=== PATIENT | female | born 1945 | race Caucasian/White ===

== ENCOUNTER 2017-12-15 15:32 | Observation (INO) | payer MEDICARE, OTHER ==
[~2017-12-15] VITALS: Ht 162.6 cm; Wt 68.1 kg
[~2017-12-15 15:32] MED LIST: ASPIR 8181 MG PO; ATORVASTATIN CA20 MG PO; CARVEDILOL25 MG PO; GLIMEPIRIDE1 MG PO; GLIPIZIDE5 MG PO; KEFLEX500 MG PO; LISINOPRIL10 MG PO; METFORMIN HCL500 MG PO; METOPROLOL SUCC50 MG PO
[2017-12-15] MEDS ORDERED: ASPIRIN 81 MG CHEW TAB PO ONE ×2 (17:00→17:15)
[2017-12-15 19:12] LABS: BASOPHILS # (AUTO) 0.1 (0.0-0.1); BASOPHILS % 1.2 % (0.0-1.0); EOSINOPHILS # (AUTO) 0.5 (0.0-0.4); EOSINOPHILS % 6.3 % (0.0-6.0); HEMATOCRIT 34.5 % (34.2-44.1); HEMOGLOBIN 11.7 g/dL (12.0-16.0); LYMPHOCYTES # (AUTO) 2.4 (1.0-3.2); MEAN CORPUSCULAR HEMOGLOBIN 30.9 pg (28-32); MEAN CORPUSCULAR HGB CONC 33.9 g/dL (31-35); MONOCYTES # (AUTO) 0.7 (0.2-0.8); MONOCYTES % 8.9 % (4.4-11.3); NEUTROPHILS # (AUTO) 4.5 (2.1-6.9); NEUTROPHILS % 54.4 % (38.7-80.0); PLATELET COUNT 221 x10e3/uL (140-360); RED BLOOD COUNT 3.79 x10e6/uL (3.6-5.1); RED CELL DISTRIBUTION WIDTH 13.1 % (11.7-14.4)
[2017-12-15 19:33] LABS: ALBUMIN 3.8 g/dL (3.5-5.0); ALBUMIN/GLOBULIN RATIO 1.1 (0.8-2.0); ANION GAP 15.6 mmol/L (8-16); CALCIUM 10.4 mg/dL (8.4-10.2); CREATININE, SERUM 1.57 mg/dL (0.57-1.11); POTASSIUM 3.6 mmol/L (3.5-5.1)
[2017-12-15 19:39] LABS: CREATINE KINASE MB 3.2 ng/mL (0-5.0)
[2017-12-15 20:00] VITALS: BP 174/88
[2017-12-16] VITALS (8 sets, daily range): BP systolic 137–174; BP diastolic 70–79
[2017-12-16 03:07] LABS: CREATINE KINASE MB 2.3 ng/mL (0-5.0)
[2017-12-16] MEDS ORDERED: SERTRALINE HCL25 MG (05:22)
[2017-12-16] MEDS ORDERED: DONEPEZIL HCL5 MG (05:22)
[2017-12-16] MEDS ORDERED: DEXTROSE 50% SYRINGE 50 ML IV PRN (08:15)
[2017-12-16] MEDS: INSULIN REGULAR, HUMAN 100 UNIT/1 ML 3ML VIAL SQ SCH ×3 (08:35→20:41)
[2017-12-16 10:25] LABS: CREATINE KINASE MB 1.9 ng/mL (0-5.0)
[2017-12-16] MEDS ORDERED: POTASSIUM CHLORIDE 20MEQ/100ML 200 ML IV ONE (13:30)
[2017-12-16] MEDS ORDERED: METOPROLOL SUCCINATE 50 MG TAB XL PO ONE (13:45)
[2017-12-16] MEDS ORDERED: POTASSIUM CHLORIDE 10MEQ EA PO ONE (13:45)
--- NOTE | 2017-12-16 14:34 | History and Physical ---
REASON FOR ADMISSION: ICD shock. HISTORY OF PRESENT ILLNESS: This is a 72-year-old woman with a history of coronary artery disease status post 4-vessel CABG, chronic systolic heart failure status post AICD, diabetes mellitus, hypertension and hyperlipidemia, who presents after she was shocked by her AICD. The patient reports she had been feeling well without symptoms when she got up from her chair to walk to let her dog out into the yard. While she was standing at the door, she felt a shock down the left side of her chest. There were no preceding symptoms. The patient denied any chest pain, lightheadedness, shortness of breath, palpitations or loss of consciousness. She subsequently returned to her chair again and called her son, who brought her to the ER for further evaluation. On AICD interrogation, patient was found to have 1 shock delivered for a ventricular rate at 191 on yesterday afternoon at approximately 2:23. REVIEW OF SYSTEMS: Negative except as per HPI. PAST MEDICAL HISTORY 1. Coronary artery disease status post 4-vessel CABG. 2. Chronic systolic heart failure status post AICD. 3. Diabetes mellitus. 4. Hypertension. 5. Hyperlipidemia. PAST SURGICAL HISTORY 1. Cholecystectomy. 2. Hysterectomy. 3. Appendectomy. 4. CABG. 5. Hernia repair. ALLERGIES: NO KNOWN DRUG ALLERGIES. MEDICATIONS: Please see medication list. SOCIAL HISTORY: Denies tobacco, alcohol or illicit drugs. FAMILY HISTORY: Noncontributory to current illness. PHYSICAL EXAMINATION VITAL SIGNS: Temperature 96.7 degrees, pulse 80, respiratory rate 16, blood pressure 160/70, oxygen saturation 98% on room air. GENERAL: Elderly woman in no acute distress. Anxious-appearing. HEENT: Normocephalic, atraumatic. Pupils equal, no scleral icterus. NECK: Supple. No thyromegaly or cervical lymphadenopathy, no carotid bruits. LUNGS: Clear to auscultation bilaterally. No wheezes or crackles. CARDIOVASCULAR: Normal rate, regular rhythm. A 2/6 systolic murmur at the left sternal border. Normal S1 and S2. ABDOMEN: Soft, nontender. EXTREMITIES: No edema. LABS: WBC 8.27, hemoglobin 11.7, hematocrit 34.5, platelets 221. Sodium 138, potassium 3.6, chloride 103, CO2 23, BUN 18, creatinine 1.57. Troponin 0.055. Triglycerides 204, chloride 195, LDL 115, HDL 39. ELECTROCARDIOGRAM: Sinus tachycardia, otherwise normal ECG. TELEMETRY: Sinus tachycardia. IMPRESSION 1. Automatic implantable cardioverter-defibrillator shock. 2. Coronary artery disease status post 4-vessel coronary artery bypass graft. 3. Chronically systolic heart failure status post automatic implantable cardioverter-defibrillator. 4. Diabetes mellitus. 5. Hypertension. 6. Hyperlipidemia. RECOMMENDATIONS: There has been no evidence of myocardial infarction on serial cardiac biomarkers. Replete electrolytes. We will increase atorvastatin given LDL is not at goal. Patient had ischemic evaluation 1 year prior with patent grafts at that time. In addition, patient appears to have received an inappropriate shock for a supraventricular tachycardia based on the appearance of her rhythm strip on device interrogation. Plan for outpatient monitor to evaluate for any atrial arrhythmias that could have explained her tachycardia. Resume patient's home beta blockade as well as her home medications. Monitor patient on telemetry while she is admitted. Once electrolytes are repleted, likely discharge home later this afternoon. Job#: [id number] EV LOR
[2017-12-16 15:05] LABS: ANION GAP 12.6 mmol/L (8-16); CALCIUM 9.3 mg/dL (8.4-10.2); CREATININE, SERUM 1.58 mg/dL (0.57-1.11); MAGNESIUM 1.5 MG/DL (1.3-2.1); POTASSIUM 4.6 mmol/L (3.5-5.1)
[2017-12-16] MEDS: CARVEDILOL 12.5 MG TAB PO SCH (17:10)
[2017-12-16 19:24] LABS: ANION GAP 14.5 mmol/L (8-16); CALCIUM 9.1 mg/dL (8.4-10.2); CREATININE, SERUM 1.56 mg/dL (0.57-1.11); POTASSIUM 4.5 mmol/L (3.5-5.1)
[2017-12-16] MEDS ORDERED: ENOXAPARIN SOD INJ 40 MG/0.4 ML SYR SC NR (20:30)
[2017-12-16] MEDS ORDERED: ATORVASTATIN 20 MG TAB PO SCH (21:00)
[2017-12-16] MEDS ORDERED: ATORVASTATIN 40 MG TAB PO SCH (21:00)
[2017-12-17] VITALS: BP 180/74
[2017-12-17 04:00] VITALS: BP 177/77
[2017-12-17] MEDS: INSULIN REGULAR, HUMAN 100 UNIT/1 ML 3ML VIAL SQ SCH ×2 (07:48→11:46)
[2017-12-17 08:32] VITALS: BP 179/81
[2017-12-17] MEDS: CARVEDILOL 12.5 MG TAB PO SCH (08:35)
[2017-12-17] MEDS ORDERED: MAGNESIUM SULFATE 2GM/50ML 100 ML IV ONE (08:45)
[2017-12-17] MEDS ORDERED: METOPROLOL SUCCINATE 50 MG TAB XL PO SCH (09:00)
[2017-12-17] MEDS ORDERED: ASPIRIN 81 MG ENTERIC COATED PO SCH (09:00)
[2017-12-17 09:04] VITALS: BP 179/81
[2017-12-17 12:28] VITALS: BP 173/75
--- NOTE | 2017-12-17 15:42 | Discharge Summary ---
ADMITTING DIAGNOSIS: Automatic implantable cardioverter-defibrillator shock. DISCHARGE DIAGNOSIS: Automatic implantable cardioverter-defibrillator shock. HISTORY OF PRESENT ILLNESS: This is a 72-year-old woman with a history of coronary artery disease status post 4-vessel CABG, chronic systolic heart failure status post AICD, diabetes mellitus, hypertension, and hyperlipidemia, who presented after she was shocked by her AICD. The patient was admitted for further evaluation. There was no evidence of myocardial infarction on serial cardiac biomarkers. Device interrogation suggested inappropriate AICD shock. The patient's electrolytes were repleted, and the patient was monitored on telemetry without any evidence of arrhythmia. She was discharged home in stable condition to follow up with her outpatient grinder needle tip for further evaluation. DIET: Healthy heart, 2 gram sodium, diabetic diet. FOLLOWUP: With Dr. Sheehan in 1 week. PHYSICAL EXAMINATION: Temperature 97.6 degrees, pulse 72, respiratory rate 18, blood pressure 179/81, oxygen saturation 100% on room air. General: Elderly woman in no acute distress. Awake and alert. Lungs are clear to auscultation bilaterally. No wheeze or crackles. Cardiovascular: Normal rate, regular rhythm. A 2/6 systolic murmur at the left sternal border. Normal S1 and S2. Abdomen is soft and nontender. Extremities: No edema. TELEMETRY: Normal sinus rhythm. Job#: [id number]
[2017-12-17] MEDS ORDERED: CARVEDILOL12.5 MG PO (16:03)
[2017-12-17] MEDS ORDERED: LISINOPRIL10 MG PO (16:03)
[2017-12-17] MEDS ORDERED: ATORVASTATIN CA20 MG PO (16:04)
[2017-12-17] MEDS ORDERED: ASPIR 8181 MG PO (16:04)
[2017-12-17] MEDS ORDERED: ENOXAPARIN SOD INJ 40 MG/0.4 ML SYR SC SCH (17:00)
== END 2017-12-17 16:19 | disposition home or self-care (01) ==
LOC: ER 15:32 → ERHOLD 17:33 → IMCU 12-16 10:43
PROVIDERS: ADMIT Internal Medicine Interventional Cardiology; ATTEND Internal Medicine Interventional Cardiology
DX: T82.198A Other mechanical complication of other cardiac electronic device, initial encounter (principal); R00.2 Palpitations; I25.10 Atherosclerotic heart disease of native coronary artery without angina pectoris; Z95.1 Presence of aortocoronary bypass graft; I11.0 Hypertensive heart disease with heart failure; I50.22 Chronic systolic (congestive) heart failure; Z95.810 Presence of automatic (implantable) cardiac defibrillator; E11.9 Type 2 diabetes mellitus without complications; E78.5 Hyperlipidemia, unspecified
CPT/HCPCS: 36415 ×3; 80048; 80053; 80061; 82550 ×2; 82553 ×2; 82948 ×2; 83735; 84484 ×2; 85025; 93005; 99284; G0378 ×3; J1650; J3475

== ENCOUNTER 2018-10-06 19:48 | Emergency (ER) | payer MEDICARE, OTHER ==
[~2018-10-06] VITALS: Ht 157.5 cm; Wt 64.4 kg
[~2018-10-06 19:48] MED LIST changes: +CARVEDILOL12.5 MG PO; +DONEPEZIL HCL5 MG; +SERTRALINE HCL25 MG
[2018-10-06 20:29] LABS: BASOPHILS # (AUTO) 0.1 (0.0-0.1); BASOPHILS % 0.8 % (0.0-1.0); EOSINOPHILS # (AUTO) 0.3 (0.0-0.4); EOSINOPHILS % 3.7 % (0.0-6.0); HEMATOCRIT 31.2 % (34.2-44.1); HEMOGLOBIN 10.6 g/dL (12.0-16.0); LYMPHOCYTES # (AUTO) 2.1 (1.0-3.2); LYMPHOCYTES % 27.8 % (18.0-39.1); MEAN CORPUSCULAR HEMOGLOBIN 30.5 pg (28-32); MEAN CORPUSCULAR VOLUME 89.7 fL (81-99); MONOCYTES # (AUTO) 0.7 (0.2-0.8); MONOCYTES % 9.3 % (4.4-11.3); NEUTROPHILS # (AUTO) 4.4 (2.1-6.9); PLATELET COUNT 179 x10e3/uL (140-360); RED BLOOD COUNT 3.48 x10e6/uL (3.6-5.1); RED CELL DISTRIBUTION WIDTH 12.6 % (11.7-14.4)
--- NOTE | 2018-10-06 20:39 | Diagnostic Imaging Report ---
A single frontal view of the chest. HISTORY: Chest pain COMPARISON: Chest radiograph January 15, 2018 DISCUSSION: Portable technique, limits sensitivity of the exam. Multiple overlying monitoring leads and other artifacts. Tubes/Lines: Unchanged appearance of the implanted left-sided cardiac device. Lungs and pleura: Low lung volumes result in bibasilar vascular crowding, accentuation of the pulmonary interstitial markings, central pulmonary vasculature, and the cardiac silhouette. Allowing for these limitations, the findings are as follows: No evidence of a consolidative pneumonia or pulmonary alveolar edema. No definite pleural effusion or pneumothorax is identified. Heart and mediastinum: The cardiomediastinal silhouette appear(s) unremarkable. Bones and soft tissues: Multiple median sternotomy wires. IMPRESSION: No acute radiographic abnormality. Signed by: Dr. Valeriy Salmeron D.O., M.M.M. on 10/06/2018 8:35 PM
[2018-10-06 20:40] LABS: INR 0.95; PROTHROMBIN TIME 13.2 seconds (11.9-14.5)
[2018-10-06 20:49] LABS: PARTIAL THROMBOPLASTIN TIME 27.2 seconds (23.8-35.5)
[2018-10-06 20:50] LABS: ALBUMIN 3.3 g/dL (3.5-5.0); ALBUMIN/GLOBULIN RATIO 0.9 (0.8-2.0); ANION GAP 19.7 mmol/L (8-16); CALCIUM 8.6 mg/dL (8.4-10.2); CREATININE, SERUM 2.27 mg/dL (0.57-1.11); POTASSIUM 3.7 mmol/L (3.5-5.1)
[2018-10-06 21:00] LABS: CREATINE KINASE MB 1.8 ng/mL (0-5.0)
[2018-10-07 00:26] LABS: CREATINE KINASE MB 2.3 ng/mL (0-5.0)
== END 2018-10-07 00:45 | disposition home or self-care (01) ==
LOC: ER 19:48
DX: R07.89 Other chest pain (principal)
CPT/HCPCS: 36415; 71045; 80053; 82550; 82553; 84484; 85025; 85610; 85730; 93005; 99284